=== PATIENT | female | born 1970 | race African-American/Black ===

== ENCOUNTER 2016-06-02 08:02 | Inpatient (IN) | payer BC, OTHER ==
[2016-05-28 14:16] VITALS: BMI 42.6
[2016-06-02] MEDS ORDERED: METHYLENE BLUE 1% 10 MG/1 ML VIAL ONE (09:08)
[2016-06-02] MEDS ORDERED: VASOPRESSIN 20 UNITS/ML VIAL IV ONE (09:10)
--- NOTE | 2016-06-02 11:06 | HP ---
Past Medical History - Primary Care Physician PCP:: David Razo - Admission Chief Complaint: pelvic pain, fibroid uterus, ,infertility History Source: Patient Limitations to Obtaining History: No Limitations - Past Medical History Pulmonary: Yes: Asthma Additional OB History: 2 ectopic - Past Surgical History Past Surgical History: Yes: Vein Stripping/Ligation Hx Myomectomy: No Hx Transabdominal Cerclage: No Additional Surgical History: rt tibia fx as child - Advance Directives Advance Directives: Yes: DNR - Smoking History Smoking history: Never smoked Have you smoked in the past 12 months: No - Alcohol/Substance Use Hx Alcohol Use: No - Social History History of Recent Travel: No Home Medications - Allergies Allergies/Adverse Reactions: Allergies Allergy/AdvReac Type Severity Reaction Status Date / Time No Known Drug Allergies Allergy Verified 05/28/16 14:22 PET DANDER Allergy "BREATHING Uncoded 05/28/16 14:22 ISSUES" - Home Medications Home Medications: Ambulatory Orders Cholecalciferol (Vitamin D3) [Vitamin D3] 2,000 unit PO DAILY 05/28/16 Mometasone Furoate [Asmanex] 0.24 gm IH DAILY 05/28/16 Albuterol Sulfate [Proair Respiclick] 2 puff IH Q6H PRN 06/02/16 Review of Systems - Review of Systems Constitutional: reports: No Symptoms Eyes: reports: No Symptoms HENT: reports: No Symptoms Neck: reports: No Symptoms Cardiovascular: reports: No Symptoms Respiratory: reports: No Symptoms Gastrointestinal: reports: No Symptoms Genitourinary: reports: No Symptoms Breasts: reports: No Symptoms Reported Musculoskeletal: reports: No Symptoms Integumentary: reports: No Symptoms Neurological: reports: No Symptoms Endocrine: reports: No Symptoms Hematology/Lymphatic: reports: No Symptoms Psychiatric: reports: No Symptoms 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: Vital Signs Temperature 97.7 F 06/02/16 09:26 Pulse Rate 99 H 06/02/16 09:26 Respiratory Rate 20 06/02/16 09:26 Blood Pressure 145/90 06/02/16 09:26 O2 Sat by Pulse Oximetry (%) 99 06/02/16 09:26 Constitutional: Yes: Well Nourished, No Distress, Calm Eyes: Yes: WNL, Conjunctiva Clear, EOM Intact HENT: Yes: WNL, Atraumatic, Normocephalic Neck: Yes: WNL, Supple, Trachea Midline Cardiovascular: Yes: WNL, Regular Rate and Rhythm Respiratory: Yes: WNL, Regular, CTA Bilaterally Gastrointestinal: Yes: WNL ...Rectal Exam: Yes: WNL Renal/: Yes: WNL External Genitalia: Yes: Normal Vaginal Exam: Yes: Normal Cervix: Yes: Normal Uterus: Yes: Enlarged, Lumpy (multiple fibroids) Adnexa: Not Palpable: Left, Right Breast(s): Yes: WNL Musculoskeletal: Yes: WNL Extremities: Yes: WNL Edema: No Integumentary: Yes: WNL Neurological: Yes: WNL, Alert, Oriented ...Motor Strength: WNL Psychiatric: Yes: WNL, Alert, Oriented Problem List - Problem (1) Pelvic pain Code(s): R10.2 - PELVIC AND PERINEAL PAIN (2) Fibroid uterus Code(s): D25.9 - LEIOMYOMA OF UTERUS, UNSPECIFIED Qualifiers: Uterine leiomyoma location: intramural Qualified Code(s): D25.1 - Intramural leiomyoma of uterus Assessment/Plan abdominal myomectomy, chromotubation, rba discussed
[2016-06-02] MEDS ORDERED: ROCURONIUM BROMIDE 50 MG/5 ML VIAL ONE ×2 (11:44→13:00)
[2016-06-02] MEDS ORDERED: PROPOFOL 20 ML ONE ×4 (11:44)
[2016-06-02] MEDS ORDERED: MIDAZOLAM HCL 2 MG/2 ML SINGLE DOSE VIAL ONE (11:44)
[2016-06-02] MEDS ORDERED: SUCCINYLCHOLINE CHLORIDE 200 MG/10 ML VIAL ONE (11:44)
[2016-06-02] MEDS ORDERED: ceFAZolin SODIUM 1 GM VIAL IVPB ONE (12:00)
[2016-06-02] MEDS ORDERED: ceFAZolin SODIUM 1 GM VIAL ONE (12:00)
[2016-06-02] MEDS ORDERED: ONDANSETRON 4 MG/2 ML VIAL ONE (12:01)
[2016-06-02] MEDS ORDERED: DEXAMETHASONE SOD PHOSPHATE 4 MG/1 ML VIAL ONE (12:01)
[2016-06-02] MEDS ORDERED: METHYLENE BLUE 1% 10 MG/1 ML VIAL NR ONE (12:10)
[2016-06-02] MEDS ORDERED: PHENYLEPHRINE HCL 10 MG/1 ML SINGLE DOSE VIAL ONE (12:14)
[2016-06-02] MEDS ORDERED: HYDROmorphone HCL/PF 1 MG/ML VIAL (FOR PYXIS CHARGING ONLY) ONE (12:37)
[2016-06-02] MEDS ORDERED: NEOSTIGMINE METHYLSULFATE 0.5 MG/ML - 10 ML MDV ONE (13:55)
[2016-06-02] MEDS ORDERED: GLYCOPYRROLATE 0.2 MG/1 ML VIAL ONE (13:55)
[2016-06-02] MEDS ORDERED: KETOROLAC TROMETHAMINE 30 MG/1 ML VIAL ONE (13:57)
[2016-06-02] MEDS ORDERED: PROMETHAZINE HCL 25 MG/1 ML VIAL IVPUSH PRN (14:08)
[2016-06-02] MEDS ORDERED: HYDROmorphone *PCA* 10MG/50ML DISP.SYRIN PCA SCH (14:15)
[2016-06-02] MEDS ORDERED: IBUPROFEN 600 MG TABLET (FP) PO PRN (14:38)
[2016-06-02] MEDS ORDERED: ONDANSETRON 4 MG/2 ML VIAL IVPB PRN (14:38)
[2016-06-02] MEDS ORDERED: IBUPROFEN 800 MG/8 ML IJ IVPB PRN (14:38)
[2016-06-02] MEDS ORDERED: ELECTROLYTE-148 SOLN 1,000 ML IV SCH (14:45)
[2016-06-02] MEDS ORDERED: HYDROmorphone *PCA* 10MG/50ML DISP.SYRIN PCA ONE (14:45)
[2016-06-03 08:43] LABS: MCH 27.6 pg (25.7-33.7); MCHC 33.1 g/dl (32.0-36.0); MEAN CELL VOLUME 83.5 fl (80-96); MEAN PLT VOLUME 9.3 fl (7.5-11.1); PLATELET COUNT 177 K/MM3 (134-434); RDW 13.5 % (11.6-15.6); WHITE BLOOD COUNT 9.4 K/mm3 (4.0-10.0)
[2016-06-03] MEDS ORDERED: PCA PUMP KEY 1 EACH EACH ONE (09:07)
[2016-06-03] MEDS: ENOXAPARIN NA (PORCINE) 40 MG/0.4 ML DISP.SYRIN SQ SCH (09:09)
--- NOTE | 2016-06-03 10:45 | PN ---
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 Will d/c pest control service technician, encouraged to ambulate. No anesthesia complications.
--- NOTE | 2016-06-03 15:54 | PN ---
Progress Note (SOAP) - Subjective Chief Complaint: Some incisional pain, no fever, no chills, no vomiting. Pt is ambulating History of Present Illness: POD#1 s/p myomectomy - Current Medications Current Medications: Active Medications Enoxaparin Sodium (Lovenox -) 40 mg SQ DAILY [facility] Last Admin: 06/03/16 09:09 Dose: 40 mg Parenteral Electrolytes (Plasma-Lyte 148 -) 1,000 mls @ 125 mls/hr IV ASDIR [facility]IBEL Ibuprofen (Motrin -) 600 mg PO Q6H PRN PRN Reason: FEVER Ibuprofen (Caldolor Injection -) 800 mg IVPB Q6H PRN PRN Reason: FEVER Ondansetron HCl (Zofran Injection) 4 mg IVPB Q6H PRN PRN Reason: NAUSEA Oxycodone HCl (Roxicodone -) 10 mg PO Q4H PRN PRN Reason: PAIN LEVEL 1-5 - Objective Vital Signs: Vital Signs Temperature 98.9 F 06/03/16 14:30 Pulse Rate 78 06/03/16 14:30 Respiratory Rate 20 06/03/16 14:30 Blood Pressure 131/73 06/03/16 14:30 O2 Sat by Pulse Oximetry (%) 99 06/03/16 02:00 Constitutional: Yes: No Distress, Calm, Obese Eyes: Yes: WNL, Conjunctiva Clear HENT: Yes: WNL, Atraumatic, Normocephalic Neck: Yes: WNL, Supple, Trachea Midline Cardiovascular: Yes: WNL, Regular Rate and Rhythm Respiratory: Yes: WNL, Regular, CTA Bilaterally Gastrointestinal: Yes: Soft, Abdomen, Obese, Hypoactive Bowel Sounds Genitourinary: Yes: WNL Musculoskeletal: Yes: WNL Extremities: Yes: WNL Peripheral Pulses WNL: Yes Edema: No Integumentary: Yes: WNL Wound/Incision: Yes: Clean/Dry, Dressing Dry and Intact Neurological: Yes: WNL, Alert, Oriented ...Motor Strength: Yes: WNL Psychiatric: Yes: WNL, Alert, Oriented Labs Lab Results: CBC, BMP 06/03/16 08:30 Assessment/Plan POD#1 s/p abdom myomectomy. Patient is doing well, stable. Ambulation was encouraged Incentive spirometry encouraged Advance diet as tolerated.
[2016-06-03] MEDS: oxyCODONE HCL 5 MG TABLET PO PRN (22:22)
[2016-06-04] MEDS: ENOXAPARIN NA (PORCINE) 40 MG/0.4 ML DISP.SYRIN SQ SCH (09:57)
[2016-06-04] MEDS: oxyCODONE HCL 5 MG TABLET PO PRN ×2 (12:43→19:17)
--- NOTE | 2016-06-04 12:56 | PATH ---
Surgical Pathology Report Patient Name: EMORY PAYNE [facility]. Rec. #: [id number] /Age/Gender: 1970 (Age: 46) / F Account: [id number] Location: [facility] OBS/CONTENT STRATEGY LEAD Taken: 06/02/2016 Received: 06/03/2016 Reported: 06/04/2016 Physicians: David Razo M.D. Specimen(s) Received UTERINE FIBROIDS Clinical History Uterine fibroids Final Diagnosis UTERUS, LAPAROSCOPIC MYOMECTOMY: FOUR LEIOMYOMATA, AGGREGATE WEIGHT 87 GRAMS, WITH DEGENERATIVE CHANGES AND FOCAL CALCIFICATION. Electronically Signed Grey Pope M.D. Gross Description Received in formalin, labeled "uterine myomas," is an 87 g aggregate of 4 storey, firm to rubbery nodules, consistent with fibroids. The fibroids range from 2.8-4.8 cm in greatest dimension. Sectioning reveals focal calcifications within one of the fibroids. The remaining fibroid parenchyma is storey, firm rubbery and displays whirled architecture. No areas of hemorrhage or necrosis are identified. Forming Mill Operator sections are submitted in 6 cassettes with cassette 1 following decalcification. /06/03/201606/03/2016
[2016-06-04] MEDS ORDERED: BISACODYL 10 MG SUPP.RECT RC PRN (16:53)
--- NOTE | 2016-06-04 16:53 | PN ---
Progress Note (short form) - Note Progress Note: pod 2 , has gas pain, not passing gas yet. no vaginal bleeding, voids ok CBC, BMP 06/03/16 08:30 Last Vital Signs Temp Pulse Resp BP Pulse Ox 98.8 F 91 H 20 131/68 99 06/04/16 08:15 06/04/16 08:15 06/04/16 08:15 06/04/16 08:15 06/04/16 08:15 abdomen soft, no distension , BS hypoactive but present incision dry, clean no calf tenderness no vaginal bleeding impression mild illius , plan dulcolax prn , if no gas passed, iv ,npo , ngt Problem List - Problems (1) Pelvic pain Code(s): R10.2 - PELVIC AND PERINEAL PAIN (2) Fibroid uterus Code(s): D25.9 - LEIOMYOMA OF UTERUS, UNSPECIFIED Qualifiers: Qualified Code(s): D25.1 - Intramural leiomyoma of uterus
[2016-06-04] MEDS ORDERED: MAGNESIUM HYDROX 2400MG/30ML ORAL SUSPENSION 30 ML CUP PO ONE (22:48)
--- NOTE | 2016-06-05 01:02 | OP ---
DATE OF OPERATION: 06/02/2016 PREOPERATIVE DIAGNOSIS: Pelvic pain, multiple fibroid uterus, infertility. POSTOPERATIVE DIAGNOSIS: Pelvic pain, multiple fibroid uterus, infertility. PROCEDURE: Abdominal multiple myomectomy and chromotubation. SURGEON: David Razo M.D. HOOP BENDING MACHINE OPERATOR: Millicent Champion M.D. ESTIMATED BLOOD LOSS: About 200 mL. ANESTHESIA: General. ANESTHESIOLOGIST: Clayton Meyer M.D. OPERATION: Patient was taken to operating with adequate general anesthesia. Abdomen was prepped and draped. The Pfannenstiel abdominal skin incision was made over the previous incision. Abdominal wall was cut layer by layer, until peritoneum was exposed and incised. Upon entering the abdominal cavity, there were some omental adhesions to the posterior cul-de-sac and uterus which was lysed, and then bowels were packed away. Uterus was irregular with multiple myomas. There were 4 multiple intramural myoma seen. There was 1 on the fundal and then 2 on each side extending to the broad ligament and one posteriorly. At this time, the chromotubation was done. The left tube did not fill up because it had removed from previous ectopic procedure. The right also had slight staining at the cornua region, but it did not fill up, and then vasopressin was injected to the serosas of the uterus over the fibroids, and then with cautery serosa was cut and the fibroids were and fibroids were undermined with a Metzenbaum scissors and then until the base of the fibroid was reached, and then the base was clamped with Lissette clamp, and the fibroid was removed, and then the Lissette was sutured with a 2-0 Vicryl, and then with a 2-0 Vicryl uterus area of the fibroid uterus was repaired, then the other 3 fibroids also removed with the same procedure, and then the uterine wall was repaired with a interrupted suture of the 0 Vicryl, and then with a 3-0 Vicryl serosa was repaired in the base with suture, and endometrium was not entered, and then altogether 4 fibroids were removed, and uterus was reconstructed, no active bleeding was seen. Pelvic cavity irrigated and no active bleeding. All the lap, sponge, instrument counts were correct, then the area of the myomectomy was covered with intercede, and then peritoneum was closed with 0 Biosyn continuous suture, fascia were brought together with the 0 Vicryl suture, and then subcutaneous fat interrupted suture of 0 Vicryl, and the skin was closed with 3-0 Vicryl continuous subcuticular suture. Patient tolerated procedure well, left the OR in good condition. Micha [id number]
[2016-06-05] MEDS: oxyCODONE HCL 5 MG TABLET PO PRN (03:54)
[2016-06-05 08:30] VITALS: BP 147/87; PULSE 96; TEMP 98.3
[2016-06-05] MEDS: ENOXAPARIN NA (PORCINE) 40 MG/0.4 ML DISP.SYRIN SQ SCH (09:08)
--- NOTE | 2016-06-05 10:30 | PN ---
Progress Note (SOAP) - Subjective Chief Complaint: Some incisional pain, no fever, no chills, no vomiting. Pt is ambulating. Has flatus, no nausea or vomiting, no fever or chills. Pt had asthma episode last night but now resolved. History of Present Illness: POD#2 s/p myomectomy - Current Medications Current Medications: Active Medications Bisacodyl (Dulcolax Suppository -) 10 mg RC DAILY PRN PRN Reason: CONSTIPATION Last Admin: 06/04/16 21:03 Dose: 10 mg Enoxaparin Sodium (Lovenox -) 40 mg SQ DAILY [facility] Last Admin: 06/05/16 09:08 Dose: 40 mg Ibuprofen (Motrin -) 600 mg PO Q6H PRN PRN Reason: FEVER Last Admin: 06/03/16 22:23 Dose: 600 mg Ibuprofen (Caldolor Injection -) 800 mg IVPB Q6H PRN PRN Reason: FEVER Last Admin: 06/03/16 17:11 Dose: 800 mg Ondansetron HCl (Zofran Injection) 4 mg IVPB Q6H PRN PRN Reason: NAUSEA Last Admin: 06/03/16 16:39 Dose: 4 mg Oxycodone HCl (Roxicodone -) 10 mg PO Q4H PRN PRN Reason: PAIN LEVEL 1-5 Last Admin: 06/05/16 03:54 Dose: 10 mg - Objective Vital Signs: Vital Signs Temperature 98.3 F 06/05/16 08:28 Pulse Rate 96 H 06/05/16 08:28 Respiratory Rate 20 06/05/16 08:28 Blood Pressure 147/87 06/05/16 08:28 O2 Sat by Pulse Oximetry (%) 99 06/04/16 21:00 Constitutional: Yes: Well Nourished, No Distress, Calm Eyes: Yes: WNL, Conjunctiva Clear HENT: Yes: WNL, Atraumatic, Normocephalic Neck: Yes: WNL, Supple, Trachea Midline Cardiovascular: Yes: WNL, Regular Rate and Rhythm Respiratory: Yes: WNL, Regular, CTA Bilaterally Gastrointestinal: Yes: WNL, Normal Bowel Sounds, Soft, Abdomen, Obese Genitourinary: Yes: WNL Musculoskeletal: Yes: WNL Extremities: Yes: WNL Peripheral Pulses WNL: No Edema: No Integumentary: Yes: WNL Wound/Incision: Yes: Clean/Dry, Well Approximated, Sutures Intact Neurological: Yes: WNL, Alert, Oriented ...Motor Strength: Yes: WNL Psychiatric: Yes: WNL, Alert, Oriented Labs Lab Results: CBC, BMP 06/03/16 08:30 Assessment/Plan POD#3 s/p abdom myomectomy. Patient is doing well, stable. Ambulation was encouraged Incentive spirometry encouraged Diet tolerated. No ileus. Plan to d/c to home D/c instructions reviewed.
--- NOTE | 2016-06-07 13:16 | DS ---
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 Vital Signs: Vital Signs Temperature 98.3 F 06/05/16 08:28 Pulse Rate 96 H 06/05/16 08:28 Respiratory Rate 20 06/05/16 08:28 Blood Pressure 147/87 06/05/16 08:28 O2 Sat by Pulse Oximetry (%) 99 06/05/16 09:00 Constitutional: Yes: Well Nourished, No Distress, Calm Eyes: Yes: WNL, Conjunctiva Clear, EOM Intact HENT: Yes: WNL, Atraumatic, Normocephalic Neck: Yes: WNL, Supple, Trachea Midline Cardiovascular: Yes: WNL, Regular Rate and Rhythm Respiratory: Yes: WNL, Regular, CTA Bilaterally Gastrointestinal: Yes: WNL ...Rectal Exam: Yes: WNL Renal/: Yes: WNL External Genitalia: Yes: Normal Vaginal Exam: Yes: Normal Breast(s): Yes: WNL Musculoskeletal: Yes: WNL Extremities: Yes: WNL Edema: No Integumentary: Yes: WNL Wound/Incision: Yes: Clean/Dry, Well Approximated, Sutures Intact Neurological: Yes: WNL, Alert, Oriented ...Motor Strength: WNL Psychiatric: Yes: WNL, Alert, Oriented Labs: CBC, BMP 06/03/16 08:30 Discharge Summary Reason For Visit: UTERINE FIBROID Procedures: Principal: multiple abdominal myomectoy Condition: Good - Instructions Diet, Activity, Other Instructions: regular diet, follow up office 2 weeks Referrals: David Razo MD [Staff Physician] - Disposition: HOME - Home Medications Comprehensive Discharge Medication List: Ambulatory Orders Cholecalciferol (Vitamin D3) [Vitamin D3] 2,000 unit PO DAILY 05/28/16 Mometasone Furoate [Asmanex] 0.24 gm IH DAILY 05/28/16 Albuterol Sulfate [Proair Respiclick] 2 puff IH Q6H PRN 06/02/16 Ibuprofen [Motrin -] 600 mg PO TID #90 tablet 06/04/16 Oxycodone HCl/Acetaminophen [Percocet 5-325 mg Tablet -] 1 - 2 tab PO Q6H PRN # 20 tab MDD 8 06/05/16
== END 2016-06-05 11:20 | disposition home or self-care (01) | DRG 743 ==
LOC: JSAMEDAYSX 08:02 → J3W 16:35
PROVIDERS: ADMIT Obstetrics & Gynecology; ATTEND Obstetrics & Gynecology
PROC: 3E1P78Z Irrigation of Female Reproductive using Irrigating Substance, Via Natural or Artificial Opening (ICD-10-PCS; 2016-06-02)
PROC: 0UB90ZZ Excision of Uterus, Open Approach (ICD-10-PCS; principal; 2016-06-02 10:00)
DX: D25.1 Intramural leiomyoma of uterus (principal); N97.9 Female infertility, unspecified; R10.2 Pelvic and perineal pain
CPT/HCPCS: 36415; 84703; 85027; 88307-TC; 88311-TC; 94010; 94760

== ENCOUNTER 2016-09-24 15:06 | Emergency (ER) | payer OTHER, BC ==
[2016-09-24 15:30] VITALS: BP 136/82; PULSE 76; TEMP 98.1; BMI 42.6
--- NOTE | 2016-09-24 16:20 | PDOC ---
History of Present Illness - General Chief Complaint: Injury Stated Complaint: PAIN/ HANDS, LEGS Time Seen by Provider: 09/24/16 15:38 History Source: Patient Exam Limitations: No Limitations - History of Present Illness Initial Comments: CHIEF COMPLAINT: 46 y/o afebrile female c/o b/l shoulder pain, left hand pain and right leg pain since fall at work yesterday. HISTORY OF PRESENT ILLNESS: The patient states she slipped and fell yesterday while moving boxes at work. She now has b/l shoulder pain, left hand pain and right leg pain. The patient denies head trauma, LOC, numbness/tingling, decreased ROM. She has not taken anything for the pain and does admit the pain was worse yesterday. Vital signs on arrival are within normal limits. REVIEW OF SYSTEMS: GENERAL/CONSTITUTIONAL: No fever/chills. No weakness. No weight change. HEAD, EYES, EARS, NOSE AND THROAT: No change in vision. No ear pain or discharge. No sore throat. CARDIOVASCULAR: No chest pain or shortness of breath. RESPIRATORY: No cough, wheezing, or hemoptysis. GASTROINTESTINAL: No abd pain, nausea, vomiting, diarrhea. GENITOURINARY: No dysuria, frequency, or change in urination. MUSCULOSKELETAL: b/l shoulder pain. Left hand pain. Right thigh pain. No neck or back pain. SKIN: No rash or easy bruising. NEUROLOGIC: No headache, vertigo, loss of consciousness, or loss of sensation. PHYSICAL EXAM: VITAL_SIGNS: within normal limits GENERAL_APPEARANCE: alert, cooperative, no obvious discomfort. Morbidly obese ambulatory female with normal gait. MENTAL_STATUS: speech clear, oriented X 3, responds appropriately to questions. NEURO: motor intact and sensory intact in injured extremity. EXTREMITIES: good pulse in injured extremity. TTP of left AC joint. Full ROM of right arm. Pain with abduction of left arm > 90 degrees. Pain with palpation of left 5th digit without swelling, crepitus or deformity. Large ecchymosis on right lateral thigh that is TTP. Full ROM of right leg. SKIN: warm, dry, good color. Past History - Past Medical History Allergies/Adverse Reactions: Allergies Allergy/AdvReac Type Severity Reaction Status Date / Time No Known Drug Allergies Allergy Verified 09/24/16 15:25 PET DANDER Allergy "BREATHING Uncoded 09/24/16 15:25 ISSUES" Home Medications: Ambulatory Orders Cholecalciferol (Vitamin D3) [Vitamin D3] 2,000 unit PO DAILY 05/28/16 Mometasone Furoate [Asmanex] 0.24 gm IH DAILY 05/28/16 Albuterol Sulfate [Proair Respiclick] 2 puff IH Q6H PRN 06/02/16 Ibuprofen [Motrin -] 600 mg PO TID #90 tablet 06/04/16 Oxycodone HCl/Acetaminophen [Percocet 5-325 mg Tablet -] 1 - 2 tab PO Q6H PRN # 20 tab MDD 8 06/05/16 Asthma: Yes Cardiac Disorders: Yes (MURMUR) - Immunization History Immunization Up to Date: Yes - Psycho/Social/Smoking Cessation Hx Anxiety: No Suicidal Ideation: No Smoking History: Never smoked Have you smoked in the past 12 months: No Hx Alcohol Use: No Drug/Substance Use Hx: No Substance Use Type: None Hx Substance Use Treatment: No *Physical Exam - Vital Signs Last Vital Signs Temp Pulse Resp BP Pulse Ox 98.1 F 76 18 136/82 97 09/24/16 15:26 09/24/16 15:26 09/24/16 15:26 09/24/16 15:26 09/24/16 15:26 Medical Decision Making - Medical Decision Making A/P: 46 y/o female with multiple areas of soreness s/p slip and fall yesterday at work. Plan is as follows: 1. PO Motrin 2. Xray right hand Xray right hand IMPRESSION: (wet read). No fracture Gave patient her results. Suggested patient take 600mg of Ibuprofen every 6 hours for pain with food, walk hands up the wall hourly, apply ice to affected area and return to the ER with any worsening or concerning symptoms. The patient verbalizes understanding of all instructions, has no further questions and is awaiting discharge. *DC/Admit/Observation/Transfer Diagnosis at time of Disposition: Musculoskeletal pain, Hand pain, left Rotator cuff (capsule) sprain Qualifiers: Encounter type: initial encounter Laterality: left Qualified Code(s): S43.422A - Sprain of left rotator cuff capsule, initial encounter Traumatic ecchymosis of thigh Qualifiers: Encounter type: initial encounter Laterality: left Qualified Code(s): S70.12XA - Contusion of left thigh, initial encounter - Discharge Dispostion Disposition: HOME Condition at time of disposition: Good - Referrals Referrals: Carmencita Navarro [Primary Care Provider] - - Patient Instructions Printed Discharge Instructions: DI for Rotator Cuff Injury, DI for Musculoskeletal Pain, How To Perform RICE (Rest, Ice, Compress, Elevate) Additional Instructions: Discharge Instructions: -Lift arms up multiple times per day -Take 600mg of Ibuprofen every 6 hours for pain with food -Follow RICE instructions -Follow up with Dr. Prado in 1 week if no improvement in symptoms -Return to the ER with any worsening or concerning symptoms. - Post Discharge Activity Work/School Note: Back to Work
[2016-09-24] MEDS ORDERED: IBUPROFEN 600 MG TABLET (FP) PO ONE ×2 (16:29→16:31)
== END 2016-09-24 17:29 | disposition home or self-care (01) ==
LOC: JER 15:06
DX: S70.12XA Contusion of left thigh, initial encounter (principal); X50.0XXA Overexertion from strenuous movement or load, initial encounter; X50.3XXA Overexertion from repetitive movements, initial encounter; Y93.89 Activity, other specified; Y92.59 Other trade areas as the place of occurrence of the external cause; Y99.0 Civilian activity done for income or pay
CPT/HCPCS: 73130-TC-LT; 99281-25